=== PATIENT | male | born 1960 | race Caucasian/White ===

== ENCOUNTER 2018-12-25 12:45 | Emergency (ER) | payer OTHER ==
[2018-12-25] MEDS ORDERED: NS 0.9% 1000 ML** 1,000 ML IV ONE (13:01)
--- NOTE | 2018-12-25 13:02 | ED ---
Palpitations / Dysrhythmia - HPI Summary HPI Summary: Pt is a 58 y/o M presenting to the ED brought in by EMS for palpitations. Pt was brought from the [facility] d/t EKG changes. Pt states he was at the [facility] for a sinus infection from some cough and chest congestion that he thought travelled up into his face. The palpitations have been going on for years, according to the pt, but have never been captured. They happen most frequently at night. He still has sinus pressure, with some chills and cough, was prescribed augmentin. He denies fever, and he last had a stress test a few years ago that was normal. Denies tobacco use. No current CP or SOB. - History of Current Complaint Time Seen by Provider: 12/25/18 12:51 Hx Obtained From: Patient Onset/Duration: Sudden Onset, Still Present Timing: Constant Severity Initially: Mild Severity Currently: Mild Character: Pounding Aggravating: Nothing Alleviating: Nothing Associated Signs & Symptoms: Chest Pain - Allergy/Home Medications Allergies/Adverse Reactions: Allergies Allergy/AdvReac Type Severity Reaction Status Date / Time citalopram [From Celexa] Allergy See Comment Verified 12/25/18 13:17 codeine Allergy See Comment Verified 12/25/18 13:17 Home Medications: Home Medications Albuterol HFA INHALER* [Ventolin HFA Inhaler*] 2 puff INH Q6H PRN 12/25/18 [ History Confirmed 12/25/18] Amoxicillin/Clavulanate TAB* [Augmentin TAB 875*] 875 mg PO BID 12/25/18 [ History Confirmed 12/25/18] Bacitracin OINTMENT* 1 applic TOPICAL BID 12/25/18 [History Confirmed 12/25/18] FluvoxaMINE (NF) [Fluvoxamine (NF)] 150 mg PO BEDTIME 12/25/18 [History Confirmed 12/25/18] Lactobacillus Acidophilus* [Culturelle*] 1 cap PO DAILY 12/25/18 [History Confirmed 12/25/18] Naproxen TAB* [Naprosyn 375 mg TAB*] 500 mg PO BID 12/25/18 [History Confirmed 12/25/18] Neilmed Sinus Rinse 1 applic BOTH NARES BID 12/25/18 [History Confirmed 12/25/18 ] Phenylephrine HCl/[place] Butter [[facility] Hemorrhoidal Suppositories] 1 each RC DAILY PRN 12/25/18 [History Confirmed 12/25/18] Psyllium MISBAH* [Metamucil MISBAH*] 1 pkt PO DAILY 12/25/18 [History Confirmed ] Saline NASAL SPRAY 0.65%* [Sodium Chloride 0.65% Nasal [place]*] 2 spray BOTH NARES Q1HR PRN 12/25/18 [History Confirmed 12/25/18] Witann Evon PAD* [Tucks*] 1 applic TOPICAL TID PRN 12/25/18 [History Confirmed 12/25/18] traZODone TAB* [Desyrel TAB*] 125 mg PO BEDTIME 12/25/18 [History Confirmed 08/07] PMH/Surg Hx/FS Hx/Imm Hx Previously Healthy: Yes Endocrine/Hematology History: Denies: Hx Diabetes Cardiovascular History: Denies: Hx Hypertension - Family History Known Family History: Positive: Other - pt is adopted, unsure of full hx Negative: Hypertension, Diabetes - Social History Alcohol Use: None Hx Substance Use: No Substance Use Type: Reports: None Hx Tobacco Use: Yes Smoking Status (MU): Former Smoker Review of Systems Positive: Chills. Negative: Fever Positive: Other - sinus pressure Positive: Palpitations, Chest Pain Positive: Cough All Other Systems Reviewed And Are Negative: Yes Physical Exam - Summary Physical Exam Summary: Constitutional: Well-developed, Well-nourished, Alert. (-) Distressed Skin: Warm, Dry HENT: Normocephalic; Atraumatic Eyes: Conjunctiva normal Neck: Musculoskeletal ROM normal neck. (-) JVD, (-) Stridor, (-) Nuchal rigidity Cardio: Rhythm irregular, rate tachycardic, Heart sounds normal; Intact distal pulses; Radial pulses are 2+ and symmetric. (-) Murmur Pulmonary/Chest wall: Effort normal. (-) Respiratory distress, (-) Wheezes, (-) Rales Abd: Soft, (-) tenderness, (-) Distension, (-) Guarding, (-) Rebound Musculoskeletal: (-) Edema Lymph: (-) Cervical adenopathy Neuro: Alert, Oriented x3 Psych: Mood and affect Normal Triage Information Reviewed: Yes Vital Signs Reviewed: Yes Procedures - Sedation Patient Received Moderate/Deep Sedation with Procedure: No Diagnostics - Laboratory Result Diagrams: 12/25/18 13:07 12/25/18 13:02 Lab Statement: Any lab studies that have been ordered have been reviewed, and results considered in the medical decision making process. - EKG 1252 Cardiac Rate: Tachycardia - 139bpm EKG Rhythm: Sinus Tachycardia ST Segment: Normal Ectopy: None Summary of EKG Findings: An EKG at 1252 reveals sinus tachycardia at 139bpm with couplets. No STEMI. No acute changes. ED physician has reviewed and interpreted this EKG. 1544 Cardiac Rate: NL - 70bpm EKG Rhythm: Sinus Rhythm ST Segment: Normal Ectopy: None Summary of EKG Findings: An EKG at 1544 reveals 70bpm, nml axis, nml intervals. No STEMI. No acute changes. ED physician has reviewed and interpreted this EKG. Re-Evaluation - Re-Evaluation 1st re-eval Re-Evaluation Time: 14:11 Change: Unchanged Comment: Pt's magnesium and potassium are normal. 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 He also had an echocardiogram that was reportedly normal. Second Eval Re-Evaluation Time: 14:30 Comment: HR remains in 120's give 5 metop IV 3rd re-eval Re-Evaluation Time: 15:48 Change: Improved Comment: Pt back in NSR in 60s Course/Dx - Course Course Of Treatment: 58-year-old male with a history of palpitations presents with ventricular couplets. Physical exam w well-appearing male, irregular HR in 120's. check labs, electrolytes, EKG, TSH, trop. HDS. Did report chest discomfort w palpitations, recent stress test (he thinks was normal), echo. Follows w refueling ramp supervisor at [facility]. Trop neg here. Heart score - HEART Score. Based on a HEART score of 2 the patient has a low risk (<2% chance) of major adverse cardiac event within the next 6 weeks. I explained to the patient that based on the work-up today, her risk of heart attack is low and that he/she will be discharged with outpatient follow-up. Strict return precautions were discussed regarding worsening chest pain, new / atypical pain, shortness of breath, or any other serious concerns. Patient endorsed understanding and has no questions at this time. Source --. [place] BE, Thierno AJ, Jenni DARRELL, Liz MA, Rosalina EG , Ekaterina A, Isaías RF,. Amilcar AJ, Ruy R, Maribell R, Amparo SH, van Abel R , Rosalina TP, van renata Lester F,. Rony MJ, Bubba JM, Yevgeniy AW, Dez PA. A prospective validation of. the HEART score for chest pain patients at the emergency department. Int J. Cardiol. 2013 Nov 21;168(3):2153-8. 0-3: 2.5% risk of adverse cardiac event. In the HEART Score, these patients were discharged. (0.99% retrospective) (1.7% prospective). 4-6: 20.3% risk of adverse cardiac event, suggesting admission to the hospital. 11.6% (16.6% prospective). =7: 72.7% risk of adverse cardiac event, suggesting early invasive measures with these patients. 65.2% (50.1% prospective) - Diagnoses Provider Diagnoses: PVCs (premature ventricular contractions) Discharge ED - Sign-Out/Discharge Documenting (check all that apply): Patient Departure - Discharge Plan Condition: Stable Disposition: HOME Prescriptions: Metoprolol Succinate XL TAB* [Toprol XL TAB*] 25 mg PO DAILY 30 Days #30 tab.xl Referrals: Lisa Roberts [Primary Care Provider] - Additional Instructions: You were seen in the emergency department for an abnormal heart rate. Your EKG showed frequent PVCs. We gave you metoprolol, you can take this tomorrow morning. Please follow up with your refueling ramp supervisor. If any studies were not completed at the time of discharge you will be called with the relevant results. Please follow up with your primary care doctor in next 2-3 days and return to emergency department for worsening palpitations, passing out, chest pain or concerning symptoms. It was a pleasure taking care of you today. - Billing Disposition and Condition Condition: STABLE Disposition: Home - Attestation Statements Document Initiated by Scribe: Yes Documenting Scribe: Priyanka Vargas Provider For Whom Scribe is Documenting (Include Credential): Amy Marmolejo MD. Scribe Attestation: I, Priyanka Vargas, scribed for Amy Marmolejo MD. on 12/25/18 at 1638. Scribe Documentation Reviewed: Yes Provider Attestation: The documentation as recorded by the scribe, Priyanka Vargas accurately reflects the service I personally performed and the decisions made by me, Amy Marmolejo MD. Status of Scribe Document: Viewed Consult Consult: [id number] - I spoke with Dr. tSone who recommends Metoprolol for the pt. 2035 - Dr. Stone states pt can go home on Metoprolol ER.
[2018-12-25 13:20] LABS: ABS Basophils 0.1 10^3/ul (0-0.2); ABS Eosinophils 0.2 10^3/ul (0-0.6); ABS Lymphocytes 1.2 10^3/ul (1.0-4.8); ABS Monocytes 0.7 10^3/ul (0-0.8); ABS Neutrophils 7.3 10^3/ul (1.5-7.7); Eosinophil % 2.3 %; Hematocrit 46 % (42-52); Hemoglobin 16.1 g/dL (14.0-18.0); Lymphocyte % 12.3 %; Mean Corpuscular HGB Conc 35 g/dL (31-36); Mean Corpuscular Hemoglobin 29 pg (27-31); Mean Corpuscular Volume 83 fL (80-94); Mean Platelet Volume 7.4 fL (7.4-10.4); Platelet Count 230 10^3/uL (150-450); Red Cell Distribution Width 13 % (10-15); White Blood Count 9.4 10^3/uL (3.5-10.8)
[2018-12-25] MEDS ORDERED: Metoprolol Tartrate TAB* 25 MG PO ONE (13:37)
[2018-12-25 13:47] LABS: Albumin 4.2 g/dL (3.2-5.2); Albumin/Globulin Ratio 1.6 (1-3); BUN/Creatinine Ratio 15.1 (8-20); Calcium 10.1 mg/dL (8.6-10.3); EGFR African American 87.4 (>60); EGFR Non-African American 72.3 (>60); Globulin 2.7 g/dL (2-4); Total Bilirubin 0.7 mg/dL (0.2-1.0); Total Protein 6.9 g/dL (6.4-8.9)
[2018-12-25 14:26] LABS: TSH (Thyroid Stimulating Horm) 1.97 mcIU/mL (0.34-5.60)
[2018-12-25 14:28] LABS: Free T4 0.77 ng/dL (0.61-1.12)
[2018-12-25] MEDS ORDERED: Metoprolol Tartrate IV* 1 MG/ML 5 ML VIAL IV ONE (14:48)
[2018-12-25 16:07] VITALS: BP 123/76
== END 2018-12-25 15:57 | disposition home or self-care (01) ==
LOC: ED 12:45
DX: I49.3 Ventricular premature depolarization (principal); Z87.891 Personal history of nicotine dependence; Z79.899 Other long term (current) drug therapy; Z88.5 Allergy status to narcotic agent; Z88.8 Allergy status to other drugs, medicaments and biological substances
CPT/HCPCS: 36415; 80053; 83735; 84439; 84443; 84484; 85025; 93005; 96361; 96374; 99284; J3490